=== PATIENT | male | born 1985 | race Caucasian/White ===

== ENCOUNTER 2019-08-21 19:53 | Inpatient (IN) | payer BC ==
[~2019-08-21] VITALS: Ht 180.3 cm; Wt 96.9 kg
[~2019-08-21 19:53] MED LIST: LORTAB 5/500 501 TAB PO; PEPCID AC 10MG10 MG
[2019-08-21 20:38] LABS: HEMOGLOBIN 17.1 g/dl (13.5-18.0); MEAN CELL VOLUME 91 fl (80.0-100.0); MEAN CORPUSCULAR HEMOGLOBIN 30 pg (27.0-31.0); MEAN CORPUSCULAR HGB CONC 33 g/dl (33.0-37.0); PLATELET COUNT 430 K/mm3 (130-400); RED BLOOD COUNT 5.71 M/mm3 (4.20-5.60); REDCELL DISTRIBUTION WIDTH-CV 13.4 % (11.5-14.5)
[2019-08-21 20:43] LABS: ALBUMIN 4.8 gm/dL (3.5-5.0); BILIRUBIN,TOTAL 1.1 mg/dL (0.0-1.0); C-REACTIVE PROTEIN 3.1 mg/dL (0.0-0.9); CALCIUM 10.4 mg/dL (8.4-10.2); POTASSIUM 4.4 mmol/L (3.4-5.0); TOTAL PROTEIN 8.2 gm/dL (6.4-8.2)
[2019-08-21 21:31] LABS: BAND 1 % (0-10); HYPOCHROMIA 1+; LYMPHOCYTE 3 % (20.0-51.0); NEUTROPHILS 93 % (42.0-75.2); PLATELET ESTIMATE INCREASED (NORMAL)
[2019-08-21 23:12] VITALS: BP 118/52; PULSE 68; TEMP 99.1
[2019-08-22] VITALS (8 sets, daily range): BP systolic 106–130; BP diastolic 46–76; PULSE 80–119; TEMP 98.1–100.1
[2019-08-22] MEDS ORDERED: FLONASEALLERGY NS (02:52)
[2019-08-22 06:09] LABS: HEMATOCRIT 45.5 % (42.0-52.0); MEAN CELL VOLUME 93 fl (80.0-100.0); MEAN CORPUSCULAR HEMOGLOBIN 30 pg (27.0-31.0); MEAN CORPUSCULAR HGB CONC 33 g/dl (33.0-37.0); PLATELET COUNT 343 K/mm3 (130-400); RED BLOOD COUNT 4.91 M/mm3 (4.20-5.60); REDCELL DISTRIBUTION WIDTH-CV 13.6 % (11.5-14.5)
[2019-08-22 06:21] LABS: HEMOGLOBIN 14.9 g/dl (13.5-18.0)
[2019-08-22 06:25] LABS: CALCIUM 8.8 mg/dL (8.4-10.2); CREATININE, serum 0.82 (0.66-1.25)
[2019-08-22 08:37] LABS: BAND 12 % (0-10); LYMPHOCYTE 2 % (20.0-51.0); NEUTROPHILS 81 % (42.0-75.2); PLATELET ESTIMATE NORMAL (NORMAL)
[2019-08-22 16:03] LABS: CLOSTRIDIUM DIFF A/B NEG; CLOSTRIDIUM DIFF A/B INTERP No C.diff present
[2019-08-23] VITALS (7 sets, daily range): BP systolic 95–115; BP diastolic 48–69; PULSE 58–73; TEMP 97.9–98.6
[2019-08-23 06:57] LABS: BASO # 0.1 (0.0-0.2); BASO % 0.5 % (0.0-2.0); EOS # 0.1 (0.0-0.7); EOS % 0.9 % (0-4.0); GRAN # 9.6 (1.4-6.5); GRAN % 80.2 % (42.2-75.2); HEMATOCRIT 37.6 % (42.0-52.0); LYMPH # 1.5 (1.2-3.4); LYMPH % 12.4 % (20.0-51.0); MEAN CELL VOLUME 95 fl (80.0-100.0); MEAN CORPUSCULAR HEMOGLOBIN 30 pg (27.0-31.0); MEAN CORPUSCULAR HGB CONC 32 g/dl (33.0-37.0); MEAN PLATELET VOLUME 9.9 fl (7.4-10.4); MONO # 0.7 (0.1-0.6); MONO % 5.7 % (1.7-9.3); PLATELET COUNT 260 K/mm3 (130-400); RED BLOOD COUNT 3.96 M/mm3 (4.20-5.60); REDCELL DISTRIBUTION WIDTH-CV 13.8 % (11.5-14.5)
[2019-08-23 07:11] LABS: ALBUMIN 2.7 gm/dL (3.5-5.0); BILIRUBIN,TOTAL 0.5 mg/dL (0.0-1.0); CALCIUM 7.6 mg/dL (8.4-10.2); CREATININE, serum 0.82 (0.66-1.25); MAGNESIUM 1.8 mg/dL (1.6-2.3); POTASSIUM 4.2 mmol/L (3.4-5.0); TOTAL PROTEIN 5.1 gm/dL (6.4-8.2)
[2019-08-24] VITALS (9 sets, daily range): BP systolic 100–155; BP diastolic 55–70; PULSE 57–86; TEMP 97.7–98.9
[2019-08-24 06:09] LABS: BASO # 0.1 (0.0-0.2); BASO % 0.6 % (0.0-2.0); EOS # 0.1 (0.0-0.7); EOS % 1.6 % (0-4.0); GRAN # 5.8 (1.4-6.5); GRAN % 66.5 % (42.2-75.2); HEMOGLOBIN 11.6 g/dl (13.5-18.0); LYMPH # 1.6 (1.2-3.4); LYMPH % 17.9 % (20.0-51.0); MEAN CELL VOLUME 96 fl (80.0-100.0); MEAN CORPUSCULAR HEMOGLOBIN 30 pg (27.0-31.0); MEAN CORPUSCULAR HGB CONC 32 g/dl (33.0-37.0); MEAN PLATELET VOLUME 10.1 fl (7.4-10.4); MONO # 1.1 (0.1-0.6); MONO % 13.1 % (1.7-9.3); PLATELET COUNT 278 K/mm3 (130-400); RED BLOOD COUNT 3.81 M/mm3 (4.20-5.60); REDCELL DISTRIBUTION WIDTH-CV 13.7 % (11.5-14.5)
[2019-08-24 06:14] LABS: HEMATOCRIT 36.6 % (42.0-52.0)
[2019-08-24 06:19] LABS: ALBUMIN 2.8 gm/dL (3.5-5.0); BILIRUBIN,TOTAL 0.3 mg/dL (0.0-1.0); CREATININE, serum 0.86 (0.66-1.25); POTASSIUM 3.7 mmol/L (3.4-5.0); TOTAL PROTEIN 5.3 gm/dL (6.4-8.2)
[2019-08-24 17:13] LABS: HEPATITIS B SURFACE ANTIGEN Negative (Negative)
[2019-08-25 01:05] VITALS: BP 112/67; PULSE 50; TEMP 98
[2019-08-25 04:46] VITALS: BP 111/69; PULSE 58; TEMP 98.2
[2019-08-25] MEDS ORDERED: LEVAQUIN 750MG750 M1 PO (07:44)
[2019-08-25] MEDS ORDERED: FLAGYL500 MG PO (07:44)
[2019-08-25] MEDS ORDERED: ENTOCORT EC3 MG PO (07:46)
[2019-08-25 07:50] VITALS: BP 117/67; PULSE 58; TEMP 97.9
[2019-08-25] MEDS ORDERED: ZOFRAN ODT4 MG PO (09:16)
[2019-08-25 11:04] VITALS: BP 116/67; PULSE 57; TEMP 98.7
[2019-08-27 05:26] LABS: TB GOLD INTERPRETATION Negative (Negative)
== END 2019-08-25 11:20 | disposition home or self-care (01) | DRG 872 ==
LOC: COL.ER 19:53 → MEDICAL 21:54
PROVIDERS: Emergency Medicine; Internal Medicine Gastroenterology; Nurse Practitioner Family; Physician Assistant; ADMIT Internal Medicine
PROC: 0DJ08ZZ Inspection of Upper Intestinal Tract, Via Natural or Artificial Opening Endoscopic (ICD-10-PCS; 2019-08-24)
PROC: 0DBB8ZX Excision of Ileum, Via Natural or Artificial Opening Endoscopic, Diagnostic (ICD-10-PCS; principal; 2019-08-24 07:30)
PROC: 0DBE8ZX Excision of Large Intestine, Via Natural or Artificial Opening Endoscopic, Diagnostic (ICD-10-PCS; 2019-08-24 07:30)
DX: A41.9 Sepsis, unspecified organism (principal); R18.8 Other ascites; K52.9 Noninfective gastroenteritis and colitis, unspecified; K22.2 Esophageal obstruction; K21.9 Gastro-esophageal reflux disease without esophagitis; J32.9 Chronic sinusitis, unspecified; K64.0 First degree hemorrhoids; E86.0 Dehydration; K44.9 Diaphragmatic hernia without obstruction or gangrene; F17.210 Nicotine dependence, cigarettes, uncomplicated; Z88.6 Allergy status to analgesic agent
CPT/HCPCS: 99222-AI; 99231-AI; 99232-AI; 99239; C9113; J1170; J1956; J2250; J2405; J2550; J2704; J2765; J7030; Q9967

== ENCOUNTER → 2020-02-04 | Outpatient (CLI) | payer BC ==
[~2020-02-04] MED LIST changes: +ENTOCORT EC3 MG PO; +FLAGYL500 MG PO; +FLONASEALLERGY NS; +LEVAQUIN 750MG750 M1 PO; +ZOFRAN ODT4 MG PO
== END | disposition still patient (30) ==
LOC: COL.LAB
DX: K50.00 Crohn's disease of small intestine without complications (principal)

== ENCOUNTER → 2020-02-04 | Outpatient (CLI) | payer BC | LOC: COL.LAB 07:38 → COL.RAD 07:38 | DX: K50.00 Crohn's disease of small intestine without complications (principal); R59.0 Localized enlarged lymph nodes | CPT/HCPCS: Q9967 ==

== ENCOUNTER → 2020-03-03 | Outpatient (CLI) | payer BC | LOC: COL.LAB 10:24 | DX: K50.90 Crohn's disease, unspecified, without complications (principal) ==

== ENCOUNTER → 2020-04-08 | Outpatient (CLI) | payer BC | LOC: COL.LAB 13:47 | DX: Z01.89 Encounter for other specified special examinations (principal) ==

== ENCOUNTER 2020-04-20 16:00 | Outpatient (RCR) | payer BC ==
[~2020-04-20] VITALS: Ht 180.3 cm; Wt 98.7 kg
[2020-04-20 15:23] LABS: HEMATOCRIT 38.4 % (42.0-52.0); HEMOGLOBIN 12.9 g/dl (13.5-18.0); MEAN CELL VOLUME 91 fl (80.0-100.0); MEAN CORPUSCULAR HEMOGLOBIN 31 pg (27.0-31.0); MEAN CORPUSCULAR HGB CONC 34 g/dl (33.0-37.0); MEAN PLATELET VOLUME 9.6 fl (7.4-10.4); PLATELET COUNT 357 K/mm3 (130-400); RED BLOOD COUNT 4.22 M/mm3 (4.20-5.60)
[2020-04-20 15:30] VITALS: BP 132/69; PULSE 88; TEMP 98.9
[2020-04-20 15:32] LABS: ALBUMIN 3.8 gm/dL (3.5-5.0); TOTAL PROTEIN 6.3 gm/dL (6.4-8.2)
[~2020-04-20 16:00] MED LIST changes: +PEPCID 20MG TAB20 MG PO; -PEPCID AC 10MG10 MG
[2020-04-20 16:04] LABS: BILIRUBIN UNCONJUGATED 0.2 mg/dL (0.0-1.1); BILIRUBIN,TOTAL 0.2 mg/dL (0.0-1.0)
--- NOTE | 2020-04-20 17:30 | NUR ---
Pt tolerated infusion with no problem, no sign of adverse or allergic reaction was noted. Prior to scanning order to pharmacy, I did call Dr. Jules to report elevated WBC count. Pt had stable vitals, no fever, and denied any malaise or other symptom recently. Dr. Jules ordered that we continue with the infusion as planned. At completion of infusion, and 15 min monitoring, pt was amb to exit with steady gait.
== END 2020-04-20 18:47 ==
LOC: EUO 16:00
PROVIDERS: Internal Medicine Gastroenterology
DX: K50.00 Crohn's disease of small intestine without complications (principal)
CPT/HCPCS: J3358

== ENCOUNTER 2021-09-18 10:14 | Outpatient (RCR) | payer OTHER | END 2021-10-14 | disposition home or self-care (01) | LOC: PT.GENESIS | DX: R42 Dizziness and giddiness (principal) ==

== ENCOUNTER → 2021-12-08 | Outpatient (CLI) | payer OTHER ==
[2021-12-08 09:35] LABS: BASO # 0.1 K/mm3 (0.0-0.2); BASO % 1.2 % (0.0-2.0); EOS # 0.1 K/mm3 (0.0-0.7); EOS % 1.8 % (0.0-4.0); GRAN # 5.1 K/mm3 (1.4-6.5); GRAN % 65.4 % (42.2-75.2); LYMPH # 1.7 K/mm3 (1.2-3.4); LYMPH % 22.3 % (20.0-51.0); MEAN CELL VOLUME 72 fl (80.0-100.0); MEAN CORPUSCULAR HGB CONC 29 g/dl (33.0-37.0); MEAN PLATELET VOLUME 9.6 fl (7.4-10.4); MONO # 0.7 K/mm3 (0.1-0.6); PLATELET COUNT 458 K/mm3 (130-400); REDCELL DISTRIBUTION WIDTH-CV 19.3 % (11.5-14.5)
[2021-12-08 09:54] LABS: ALBUMIN 3.3 gm/dL (3.5-5.0); BILIRUBIN,TOTAL 0.5 mg/dL (0.2-1.2); CALCIUM 8.4 mg/dL (8.4-10.2); CHOLESTEROL RISK RATIO 3.2; CREATININE, serum 0.82 mg/dL (0.72-1.25); POTASSIUM 4.2 mmol/L (3.5-4.5); TOTAL PROTEIN 5.8 gm/dL (6.2-8.1)
[2021-12-08 10:00] LABS: HEMOGLOBIN 9.8 g/dl (13.5-18.0); MEAN CORPUSCULAR HEMOGLOBIN 21 pg (27-31)
[2021-12-08 10:14] LABS: THYROID STIMULATING HORMONE 1.14 uIU/mL (0.350-4.940)
== END ==
LOC: COL.LAB 09:12
PROVIDERS: Family Medicine
DX: Z01.89 Encounter for other specified special examinations (principal)

== ENCOUNTER → 2022-04-26 | Outpatient (CLI) | payer OTHER | LOC: COL.RAD 12:54 | DX: K44.9 Diaphragmatic hernia without obstruction or gangrene (principal) | CPT/HCPCS: Q9967 ==